=== PATIENT | male | born 1990 | race Caucasian/White ===

== ENCOUNTER 2021-09-28 09:32 | Emergency (ER) | payer BC ==
[2021-09-28] MEDS ORDERED: Sodium Chloride 0.9% 1,000 ML IV ONE (10:00)
[2021-09-28 10:41] LABS: ANION GAP 11.5 mmol/L (5-15); CHLORIDE,CL 103 mmol/L (98-107); SODIUM,NA 140 mmol/L (136-145)
== END 2021-09-28 11:16 | disposition home or self-care (01) ==
LOC: KA.ED 09:32
DX: R00.2 Palpitations (principal); Z86.16 Personal history of COVID-19
CPT/HCPCS: 36415; 71046; 80053; 84443; 84484; 85025; 93010; 99284; 99285-25; J7030